=== PATIENT | female | born 1980 | race Caucasian/White ===

== ENCOUNTER → 2017-11-03 | Day surgery (SDC) | payer OTHER ==
[~2017-11-03] VITALS: Ht 170.2 cm; Wt 104.3 kg
[~2017-11-03] MED LIST: CLARITIN10 M1 PO; DULOXETINE HCL30 MG PO; DULOXETINE HCL60 MG PO; MELATONIN5 M7 PO; MULTIVITAMINS1 EAC9 PO; VITAMIN D2000 UNIT PO
--- NOTE | 2017-11-03 15:20 | Operative Report ---
Operative/Inv Procedure Report Surgery Date: 11/03/17 Name of Procedure: Diagnostic Hysteroscopy, D&C Pre-Operative Diagnosis: menometrorrhagia Post-Operative Diagnosis: same Estimated Blood Loss: less than 50ml Surgeon/Associate Director Of Biostatistics: Dawn Díaz MD Anesthesia: moderate sedation Monitors: EKG, BP, Resp, Temp, O2 sat IV Fluids: LR Implants: none Urine Output: not measured, no output in OR Drains: none Specimens: ECC, EMC Microbiology: none Tourniquet: no Complications: none Condition: good Operative Indication: R/O endometrial hyperplasia Operative/Procedure Note Note: Pt was placed on the OR table in the dorsal supine position, she received sedation, then moved to the dorsal lithotomy position. The Vulvar area and vagina were prepped and draped in usual fashion for this procedure. A speculum was placed in the introitus, the anterior lip of the cervix was grasped with a single tooth tenaculum, and the uterus sounded to 9cm. An ECC was collected. The cervical os was serially dilated. The diagnostic hysteroscope with water flowing was then inserted through the cervical canal into the uterine cavity and with focusing and adjustment of water flow the details ofthe uterine jarrett and both tubal ostia could be discerned. The scope was removed and a #7 suction curette was placed in the cavity, and suction D&C was performed. A large amount of pink /white tissue was seen travelling up the tubing. When the suction was removed there was good hemostasis, all instruments were removed from the vagina, and all counts were correct X2 at the end of the procedure. The patient was returned to the dorsal supine position, awakened from anesthesia, and transferred to recovery in very good condition. Findings: Excessive amounts of endometrial tissue. No active bleeding. No singular lesion in the cavity such as a fiboid or polyp. Discharge Disposition: Same Day Admissions
== END ==
LOC: STS 02:27
DX: N92.1 Excessive and frequent menstruation with irregular cycle (principal); E66.9 Obesity, unspecified; Z68.37 Body mass index [BMI] 37.0-37.9, adult
CPT/HCPCS: 36415; 81025; 88305; J2250